=== PATIENT | male | born 1990 | race African-American/Black ===

== ENCOUNTER 2021-08-04 13:47 | Emergency (ER) | payer BC, SELFPAY ==
[2021-08-04 13:48] VITALS: BP 154/90; PULSE 68; RESP 20; TEMP 36.7; O2SAT 100
--- NOTE | 2021-08-04 14:49 | PC.NURSE ---
Patient reports swelling and pain to the right lower jaw and cheek. Onset of swelling was this morning. Patient reports having tooth ache to the back of the top and bottom jaw. Pain is rated 10/10 described as constant throbbing pain. He denies any difficulty swallowing or breathing. Denies other complaints at this time. Patient took two tylenol at around 0900 today and states It helped a little bit .
--- NOTE | 2021-08-04 15:04 | ED.GENADULT ---
HPI - General Adult General Chief complaint: Dental/Oral Stated complaint: dental Time Seen by Provider: 08/04/21 13:53 Source: patient Mode of arrival: ambulatory Limitations: no limitations History of Present Illness HPI narrative: Patient presents with chief complaint of pain and swelling of her lower right jaw that has been increasing over the past 2 to 3 days. Patient states that he has an appointment with his dentist on Thursday. Patient denies any known allergies antibiotic. Patient denies any drainage from the incision. She denies any fever, chills, nausea, vomiting, diarrhea. Related Data Allergies Allergy/AdvReac Type Severity Reaction Status Date / Time No Known Allergies Allergy Verified 08/04/21 13:50 Review of Systems Review of Systems: CONSTITUTIONAL: Denies fever, chills, or sweats. EYES: Denies visual changes, redness, or discharge. ENT: Reports facial swelling and dental pain denies rhinorrhea, congestion, sore throat, or otalgia. CARDIOVASCULAR: Denies chest pain, palpitations, or edema. RESPIRATORY: Denies cough or dyspnea. GASTROINTESTINAL: Denies abdominal pain, nausea, vomiting, or diarrhea. GENITOURINARY: Denies dysuria or hematuria. SKIN: Denies rash or itching. MUSCULOSKELETAL: Denies back pain, joint pain, or myalgia. NEUROLOGIC: Denies headache, numbness, dizziness, or weakness. PSYCHIATRIC: Denies anxiety or depression. Exam Narrative: GENERAL: Well-appearing, well-nourished, and in no acute distress. HEAD: Normocephalic, atraumatic. EYES: PERRLA and EOMI. ENT: Nares clear, no rhinorrhea or epistaxis. Mucous membranes moist. Oropharynx without tonsillar hypertrophy exudate or other lesions. Bilateral TMs pearly tran nonbulging. No abscess seen to the gumline. Tenderness to palpation of back lower right molar. Slight swelling noted to the jaw. NECK: Supple. No adenopathy or masses. Range of motion intact CHEST: Clear to auscultation. No respiratory distress. No wheezes rales or rhonchi HEART: Regular rate and rhythm. EXTREMITIES: Normal range of motion. No edema. SKIN: Warm, dry, no rash. NEURO: No focal deficits. Alert and oriented x3. PSYCH: Normal mood and affect. Course Vital Signs Vital signs: Vital Signs Temperature 98.0 F 08/04/21 13:48 Pulse Rate 68 08/04/21 13:48 Respiratory Rate 08/04/21 13:48 Blood Pressure 154/90 H 08/04/21 13:48 Pulse Oximetry 100 08/04/21 13:48 Temperature 98.0 F 08/04/21 13:48 Pulse Rate 68 08/04/21 13:48 Respiratory Rate 20 08/04/21 13:48 Blood Pressure 154/90 H 08/04/21 13:48 Pulse Oximetry 100 08/04/21 13:48 Medical Decision Making MDM Narrative Medical decision making narrative: Patient has an appointment with his dentist on Thursday. Patient instructed to take antibiotics as instructed. Patient has been given an anti-inflammatory to help with pain and swelling. Patient given return to ER instructions. Vital Signs Vital Signs: Vital Signs Temperature 98.0 F 08/04/21 13:48 Pulse Rate 68 08/04/21 13:48 Respiratory Rate 08/04/21 13:48 Blood Pressure 154/90 H 08/04/21 13:48 Pulse Oximetry 100 08/04/21 13:48 Temperature 98.0 F 08/04/21 13:48 Pulse Rate 68 08/04/21 13:48 Respiratory Rate 08/04/21 13:48 Blood Pressure 154/90 H 08/04/21 13:48 Pulse Oximetry 100 08/04/21 13:48 Discharge Plan Discharge Clinical Impression: Toothache Patient Disposition: Home, Self-Care Condition: Stable Instructions: Antibiotic Form, Toothache (ED) Additional Instructions: Take Augmentin as instructed. Take naproxen as instructed. Do not take any other NSAIDs with this medication. You may supplement with Tylenol if needed. Follow up with dentist for definitive treatment as you have scheduled on Thursday. Return to the ER if you have any emergent symptoms. Prescriptions: New naproxen 500 mg tablet 500 mg PO BID PRN (Reason: pain) Qty: 20 RF: 0 amoxic
[2021-08-04 15:51] VITALS: BP 139/98; PULSE 62; RESP 18; TEMP 36.2; O2SAT 100
== END 2021-08-04 15:54 | disposition home or self-care (01) ==
PROVIDERS: Emergency Provider Emergency Medicine
DX: K08.89 Other specified disorders of teeth and supporting structures (principal)
CPT/HCPCS: 99283

== ENCOUNTER 2021-12-29 09:37 | Emergency (ER) | payer BC, SELFPAY ==
[2021-12-29 10:47] VITALS: BP 173/93; PULSE 99; RESP 15; TEMP 37.2; O2SAT 97
--- NOTE | 2021-12-29 10:51 | ED.DENTAL ---
HPI - Dental/Oral General Chief complaint: Dental/Oral Stated complaint: TOOTHACHE Time Seen by Provider: 12/29/21 10:09 Source: patient Mode of arrival: ambulatory Limitations: no limitations History of Present Illness HPI Narrative: This is a 31-year-old male that presents to the emergency department for dentalgia x3 days. Reports pain in a left upper molar. Reports the tooth has been cracked. Denies fever, erythema, or edema. MD Complaint: tooth pain Location: Tooth # (15) Related Data Allergies Allergy/AdvReac Type Severity Reaction Status Date / Time No Known Allergies Allergy Verified 08/04/21 13:50 Review of Systems Review of Systems: CONSTITUTIONAL: Denies fever ENT: Reports dentalgia All systems reviewed & are unremarkable except as noted in HPI and below PMFSH Past Medical History Medical History (Updated 12/29/21 @ 10:55 by Ana Garza PA-C) No active medical problems Social History Social History (Updated 12/29/21 @ 10:52 by Ana Garza PA-C) Smoking status: Never smoker Exam Narrative: GENERAL: Well-appearing, well-nourished, and in no acute distress. HEAD: Normocephalic, atraumatic. EYES: EOMI. ENT: Mucous membranes moist. Oropharynx without tonsillar hypertrophy exudate or other lesions. Tooth #15 is broken, no surrounding erythema, edema or fluctuance to suggest abscess. No trismus NECK: Supple. No adenopathy or masses. CHEST: Clear to auscultation. No respiratory distress. No wheezes rales or rhonchi HEART: Regular rate and rhythm. No murmur heard. Normal peripheral pulses. EXTREMITIES: Normal range of motion. No edema. SKIN: Warm, dry, no rash. NEURO: No focal deficits. Alert and oriented x3. PSYCH: Normal mood and affect Course Vital Signs Vital signs: Vital Signs Temperature 99.0 F 12/29/21 10:47 Pulse Rate 99 12/29/21 10:47 Respiratory Rate 15 12/29/21 10:47 Blood Pressure 173/93 H 12/29/21 10:47 Pulse Oximetry 97 12/29/21 10:47 Temperature 99.0 F 12/29/21 10:47 Pulse Rate 99 12/29/21 10:47 Respiratory Rate 15 12/29/21 10:47 Blood Pressure 173/93 H 12/29/21 10:47 Pulse Oximetry 97 12/29/21 10:47 MDM - Dental/Oral MDM Narrative Medical decision making narrative: Patient presents to the emergency department for dentalgia over the last couple of days. He is afebrile and nontoxic-appearing. No signs of abscess on exam. Will be treated with oral antibiotics and instructed to follow-up with a dentist. He was given warnings to return to the ER Patient's blood pressure incidentally noted to be elevated. He was instructed he should have close follow-up with a primary doctor for this. He is asymptomatic Critical Care Time Critical Care Time Critical Care Time: No Discharge Plan Discharge Clinical Impression: Toothache High blood pressure Qualifiers: Hypertension type: unspecified Qualified Code(s): I10 - Essential (primary) hypertension Patient Disposition: Home, Self-Care Condition: Stable Instructions: Antibiotic Form, Hypertension (ED), Toothache (ED) Additional Instructions: Return to the Emergency Department if you experience fever >101, chest pain, shortness of breath, swelling in your legs, swelling and redness of your tooth, or any other symptoms that are concerning to you Take antibiotic as prescribed. Tylenol or Ibuprofen as needed for pain. Follow up with your dentist Your blood pressure was elevated today. You should follow up with a primary doctor for this Prescriptions: New amoxicillin-pot clavulanate 875-125 mg tablet 1 tablet PO Q12H 7 Days Qty: 14 RF: 0 No Action naproxen 500 mg tablet 500 mg PO BID PRN (Reason: pain) Qty: 20 RF: 0 amoxicillin-pot clavulanate [Augmentin] 875-125 mg tablet 1 tablet PO Q12H Qty: 20 RF: 0 Follow-up/Referrals: [facility] [Primary Care Provider] - Carol Ann Finney DO [Physician] - 3 Days
[2021-12-29 11:31] VITALS: BP 164/86; PULSE 88; RESP 17; O2SAT 98
== END 2021-12-29 11:33 | disposition home or self-care (01) ==
PROVIDERS: Emergency Provider Emergency Medicine
DX: K08.89 Other specified disorders of teeth and supporting structures (principal); I10 Essential (primary) hypertension
CPT/HCPCS: 99283